=== PATIENT | female | born 1945 | race Asian ===

== ENCOUNTER → 2023-04-25 11:07 | Outpatient (REF) | payer OTHER, SELFPAY | LOC: HWRAD 11:07 | PROVIDERS: ATTENDING PHYSICIAN Nurse Practitioner Family | DX: R10.2 Pelvic and perineal pain (principal) | CPT/HCPCS: 76830; 76856 ==

== ENCOUNTER 2023-07-03 16:54 | Observation (INO) | payer OTHER, SELFPAY ==
[2023-07-03] VITALS (16 sets, daily range): BP systolic 93–151; BP diastolic 49–94; PULSE 72–82; BMI 28.1
--- NOTE | 2023-07-03 11:15 | ED.GENMED ---
History of Present Illness
General
Chief Complaint: Dizziness
Source: patient and family
Exam Limitations: none
Time Seen by Provider: 07/03/23 11:11
Nursing documentation reviewed up to this point in time: agreed with
Travel History
Have you had any contact with someone who has COVID-19?: No
Do you have any symptoms of coronavirus? Fever > 100 degrees, chills, cough, shortness of breath, sore throat, loss of taste or smell, muscle aches, or headache?: No
History of Present Illness
History of Present Illness:
77 yr old female presents to the ED with family. Family, daughter at bedside assisting with translation reports patient woke up fine this morning but then around 9 AM while walking she suddenly felt very dizzy and describes room spinning. She
actually fell over to the right. She describes this dizziness as room spinning feels better at rest. She denies any associated headache trauma. Denies any recent illness fever chills. Denies any visual deficit. Daughter does report the
patient's cholesterol was recently found to be above 500 and she just started treatment.
No prior history of stroke.
Past History
Past History
ED Past Medical History: Cancer, Hypercholesterolemia and NIDDM
ED Past Surgical History: Gynecological
Social History
Tobacco: Non-smoker
Living: with family
Review of Systems
Review of Systems
Allergies reviewed?: Yes
Other source history: family
All Other Systems: ROS reviewed and negative except as documented in HPI and ROS
Constitutional: Reports no symptoms; Denies fever, fatigue or chills
EENT: Reports no symptoms
Respiratory: Reports no symptoms
ABD/GI: Reports no symptoms
: Reports no symptoms
Musculoskeletal: Reports no symptoms
Skin: Reports no symptoms
Neurological: Reports dizzy (room spinning )
Psychiatric: Reports no symptoms
Phy Exam
General Physical Exam
General Presentation: no apparent distress
General age: appears stated age
General Skin: warm and dry
General Habitus: normal
General Mental: alert
General Hydration: appears well hydrated
Eye Exam
Eye Exam: PERRL, EOMI and other (no nystagmus b/ l )
Eye Exam General: PERRL: bilateral and EOM intact: bilateral
Pupil Exam: Bilateral: round and reactive
Cardiovascular Exam
Cardiovascular Exam: regular rate/rhythm
Pulmonary Exam
Pulmonary Exam: lungs clear and no respiratory distress
Neurological Exam
Neurological Exam: alert and oriented x3
Musculoskeletal Exam
Musculoskeletal Exam: full ROM
Skin Exam
Skin Exam: normal color and warm/dry
Psychiatric Exam
Psychiatric Exam: normal mood/affect
Course
Orders/Labs/Results
Orders:
Orders
07/03/23 10:30
Electrocardiogram (*1) Urgent
Reason for Study: Fatigue / Weakness
EKG- Treatment ONCE
07/03/23 11:16
IV Insert/Care/Rem.- Treatment PRN
0.9% Sodium Chloride 1000 ml [Nss] 1,000 ml IV BOLUS
07/03/23 11:17
CT Head W/o Iv Contrast Urgent
Comment:
Reason For Exam: dizzy
07/03/23 11:22
Basic Metabolic Panel Urgent
Complete Blood Count/With Diff Urgent
07/03/23 11:25
Physical Therapy Consult [Pt Eval And Treat] Urgent
Treatment: vertigo
Activity Level: As Tolerated
07/03/23 13:30
Meclizine [Antivert] 25 mg PO NOW STA
07/03/23 16:16
Orthostatic Vital Signs As Directed
Orthostatic VS Frequency: Now
07/03/23 16:23
Potassium Urgent
Abnormal Lab Results
07/03/23
11:22
WBC 3.6 L 10^3/uL
(4.8-10.8)
MCH 32.2 H pg
(27.0-31.0)
Monocytes % 11.7 H %
(1.7-9.3)
Chloride 108 H mmol/L
(98-107)
Glucose 189 H mg/dl
(70-99)
07/03/23 11:22
Vital Signs
Initial and Last Documented VS:
Initial Vital Signs
Temp Pulse Resp BP Pulse Ox
99.1 F 86 18 136/77 96
07/03/23 10:27 07/03/23 10:27 07/03/23 10:27 07/03/23 10:27 07/03/23 10:27
Last Documented Vital Signs
Temp Pulse Resp BP Pulse Ox
99.1 F 72 13 136/81 96
07/03/23 10:27 07/03/23 15:34 07/03/23 15:34 07/03/23 15:39 07/03/23 15:34
Software Engineer Web Applications consulted with Physician
Software Engineer Web Applications consulted with physician?: Yes
Name of Physician Consulted: Aquiles
MDM/Problems Addressed
Differential Diagnosis Includes:
Not limited to vertigo, CVA
MDM/Problems Addressed:
Patient is a 77-year-old female presents to the for evaluation of vertigo. Patient started with vertigo this morning describing room spinning sensation. Patient denies any trauma is not on blood thinners. Patient presented very dizzy seemed worse
with position change. CAT scan negative no nystagmus on exam. Patient was seen by physical therapy given the reevaluated still with difficulty walking. Given patient's age and very documented history as per daughter of high cholesterol and only
recently started on medication will admit for further evaluation possible neurology stroke workup
Chronic conditions affecting care:
high cholesterol
*Radiology
Radiology exam reviewed: radiology read reviewed
*Pulse Oximetry
Patient hypoxic: no
*EKG
Interpreted by ED Provider?: Yes
Comparison EKG: no comparison EKG present
Heart Rate: 84
Rate: normal
Rhythm: sinus
Ischemia: no ischemia
*Critical Care Note
Total Time (30-74mins, 75-104mins- exclusive of procedures): Not Applicable
ED Attending Note
-
Portions of this chart may have been created with voice recognition software.� Occasional wrong word or��sound alike� substitutions may have occurred due to the inherent limitations of voice recognition software.
Discharge Plan
Departure
Patient Disposition: Admit
Date of Disposition: 07/03/23
Time of Disposition: 16:18
Admit to: Telemetry
Admit to doctor: hospitalist
Presentation/result/management discussed w/ accepting MD/DO: Hospitalist
Patient with high blood pressure during this ER visit?: Yes
Condition: Fair
Covid-19: Not Applicable
Discharge Problem:
Vertigo
Prescriptions:
No Action
metformin 500 MG tablet
500 mg PO BID
simvastatin 20 mg tablet
20 mg PO HS
raloxifene 60 mg tablet
60 mg PO DAILY
Edmond 3 Fish Oil 684-1,200 mg Capsule,Delayed Release(Dr/Ec)
1 cap PO DAILY
cholecalciferol (vitamin D3) 50 mcg (2,000 unit) tablet
50 mcg PO DAILY
fenofibrate 54 mg tablet
54 mg PO DAILY
Referrals:
Anupama Biggs CRNP [Family Provider] -
Interventions
Interventions:
*Risk Screen - Suicide Last Done: 07/03/23 11:17
*General Assessment Last Done: 07/03/23 11:17
*Neglect/Abuse Screening Last Done: 07/03/23 11:17
ED- Neurological Assessment Last Done: 07/03/23 11:17
ED Swallowing Screen Last Done: 07/03/23 11:17
Discharge Date and Time
Print Language: NAMIBIAN
[2023-07-03] MEDS: NSS 1000 IV (11:20)
[2023-07-03 11:33] LABS: % Basophils 0.8 % (0-2); % Eosinophils 1.7 % (0-6); % Immature Granulocytes 0.3 % (0-0.5); % Lymphocytes 35.2 % (20.5-51.1); % Monocytes 11.7 % (1.7-9.3); % Neutrophils 50.3 % (42.2-75.2); Absolute Eosinophils 0.1 10^3/uL (0-0.7); Absolute Lymphocytes 1.3 10^3/uL (1.2-3.4); Absolute Monocytes 0.4 10^3/uL (0.1-0.6); Absolute Neutrophils 1.8 10^3/uL (1.4-6.5); Hematocrit 41.7 % (37.0-47.0); Hemoglobin 14.3 g/dL (12.0-16.0); Mean Corp Hgb Conc. 34.3 g/dL (33.0-37.0); Mean Corpuscular Hgb 32.2 pg (27.0-31.0); Mean Corpuscular Volume 93.9 fL (81.0-99.0); Mean Platelet Volume 9.9 fL (7.4-10.4); Nucleated Red Blood Cells % 0 %; Platelet Count 185 10^3/uL (130-400); Red Blood Cell Count 4.44 10^6/uL (4.20-5.40); Red Cell Dist. Width 12.5 % (11.5-14.5); White Blood Cell Count 3.6 10^3/uL (4.8-10.8)
[2023-07-03 12:01] LABS: Blood Urea Nitrogen 17 mg/dl (7-17); Calcium 9.5 mg/dl (8.4-10.2); Carbon Dioxide 25 mmol/L (22-30); Chloride 108 mmol/L (98-107); Estimated Creatinine Clearance 64 ml/min; Glucose 189 mg/dl (70-99); Sodium 138 mmol/L (135-145); eGFR > 60.00
[2023-07-03] MEDS: ANTIVERT 25 MG PO (13:37)
--- NOTE | 2023-07-03 16:24 | W.PN.UPDATE ---
Update Note
Progress Note Update
I saw and examined the patient.
The [employer] LABORER/DESIGNER or PA's note was reviewed and I agree with the note.
Comment: 77-year-old female who presents with chief complaint of dizziness that was sudden onset this morning. Her dizziness is improved at rest but she still has dizziness when she moves her head.
136/81, 72, 13, 99.1 �F, 96% RA
NAD, awake and alert
EOMI, no nystagmus, no scleral icterus
RRR, normal S1/S2
CTAB
CN2-12 intact, non-focal
ECG (read by me): NSR @ 84, nl axis, QTc 475ms, no acute ST/TW changes
CT brain: There are no acute intracranial abnormalities. There is mild diffuse cortical atrophy with mild nonspecific white matter changes.
WBC 3.6
Cr 0.6
Dizziness:
-More than likely the patient's dizziness is peripheral in origin but there is a possibility that she has had a posterior stroke.
-check MRI/A head/neck, echo
-permissive HTN
-c/s neuro
-tele
-ASA/Plavix/statin
--- NOTE | 2023-07-03 16:28 | HPS.HSE ---
Addendum entered and electronically signed by ALEIDA Leigh 07/03/23 23:12:
Correction to cholesterol medication
Per daughter Ana Rosa patient is on simvastatin 20 mg at bedtime not atorvastatin 40 mg at bedtime, she is also on fenofibrate
-Will continue atorvastatin equivalent to simvastatin while inpatient only
Original Note:
Family Physician
-
Family Physician: ALEIDA Vogel
Chief Complaint
-
Dizziness, room spinning
History of Present Illness
77-year-old female with daughter Ana Rosa at bedside translating due to only speaking Mandarin. She states patient woke up this morning find that around 9 AM developed dizziness with the room spinning then went and had a bowel movement and felt
worse. She was walking down the bolanos drifting to her right side into the wall.. She reports that she did fall to the right side. When she moves her head left and right she has sensation of the room spinning. She is status post COVID infection
May 2023 6 weeks ago per daughter. She denies fever, chills, URI, blurred vision, headache, chest pain, palpitations, shortness breath, cough, abdominal pain, nausea, vomiting, diarrhea, urinary symptoms. She was recently placed on simvastatin
20 mg daily as cholesterol level was above 500. She has past medical history of HLD, DM2, right breast CA with mastectomy.
Medical History
Past Medical History
Past Medical History: Reports Other
Additional Past Medical History:
COVID-19 infection May 2023
HLD
DM2
right breast CA with mastectomy 50 years ago
Past Surgical History: Reports Other
Additional Past Surgical History:
right breast CA with mastectomy 50 years ago
Social History
Tobacco: Non-smoker
Alcohol: None
Drug: None
Personal: Single
Living: With Family
Employment: Retired
Family History
Family History: Other (Patient and daughter Ana Rosa at bedside unsure states parents old age)
Allergies / Home Medications
Allergies reflects when Allergies were last updated in [facility].
Home Medications with original date entered in [facility]
Allergy/Medication List:
Allergies
Allergy/AdvReac Type Severity Reaction Status Date / Time
No Known Allergies Allergy Verified 07/03/23 10:27
Home Medications
metformin 500 mg tablet 500 mg PO BID 08/28/16
cholecalciferol (vitamin D3) 50 mcg (2,000 unit) tablet 50 mcg PO DAILY 07/03/23
fenofibrate 54 mg tablet 54 mg PO DAILY 07/03/23
omega-3 fatty acids-fish oil 684 mg-1,200 mg capsule,delayed release 1 cap PO DAILY 07/03/23
raloxifene 60 mg tablet 60 mg PO DAILY 07/03/23
simvastatin 20 mg tablet 20 mg PO HS 07/03/23
vibegron 75 mg tablet (Gemtesa) 75 mg PO HS 07/03/23
Review of Systems
-
History Source: Patient and Family (Daughter Ana Rosa at bedside translating as patient speaks only Mandarin)
A 12 point ROS was completed and negative except as noted: Yes
Constitutional: Denies Fever, Fatigue or Chills
EENT: Denies Sore Throat or Runny Nose
Respiratory: Denies Cough or Trouble Breathing
Cardiac: Denies Chest Pain, Diaphoresis, Palpitations or Syncope
Abdomen/GI: Denies Abdominal Pain, Nausea, Vomiting, Diarrhea or Constipated
: Denies Dysuria, Frequency, Flank Pain, Incontinence, Difficulty Voiding or Urgency
Musculoskeletal: Denies Joint Pain or Edema
Skin: Denies Itching or Rash
Neurological: Reports Dizzy; Denies Headache, Weakness or Numbness
Endocrine: Reports No Symptoms
Hematologic/Lymphatic: Reports No Symptoms
Psych: Reports Calm
Physical Exam
Vital Signs
Vital Signs
Temp Pulse Resp BP Pulse Ox
99.1 F 72 13 136/81 96
07/03/23 10:27 07/03/23 15:34 07/03/23 15:34 07/03/23 15:39 07/03/23 15:34
Physical Exam
General: Comfortable and Conversant; No Pain, Fever or Chills
HEENT: NormoCephalic, Anicteric, Moist mucous membranes, PERRLA, Canon Conjunctivae, No Ptosis and Other (Patient reports dizziness with turning head left and right)
Respiratory: Clear; No Wheezes, Rales or Rhonchi
Cardiac: S1/S2 and Regular Rhythm; No Murmur, Rub, Gallop or Peripheral Edema
Breast: Deferred by me
GI: Soft, Non Tender, Non Distended, Normal Bowel Sounds and No Hepatosplenomegaly
Rectal: Deferred by Provider
Genito-urinary: Deferred by me
Musculoskeletal: No Clubbing, No Cyanosis and No Edema
Skin: Warm and Dry; No Rash or Jaundice
Neuro: AO x 3 (Per daughter she is answering appropriately in her deering language of Mandarin), No Motor Deficits, Nonfocal/grossly intact, Cranial Nerves Intact and No Sensory Deficits; No Slurred Speech, Facial Droop or Tremors
Psych: Calm
Laboratory Results
-
07/03/23 11:22
Laboratory Results
Total Bilirubin Cancelled 07/03/23 11:22
AST Cancelled 07/03/23 11:22
ALT Cancelled 07/03/23 11:22
Alkaline Phosphatase Cancelled 07/03/23 11:22
Data Reviewed
-
CT Scan: Report Reviewed by me
Lab Data: Labs Reviewed by me
Impression/Plan
-
Impression/plan:
Observation telemetry
#Acute dizziness concern for CVA/TIA/vertigo
#Hx covid 19 infection 6 weeks ago
BP 136/81
-Orthostatic vitals
-Consult Neurology-Case discussed with Dr. Acuna
-MRI/MRI brain/neck
-Check lipid profile, HgbA1c
-Continue atorvastatin 40 mg at bedtime
-Aspirin 325 mg now and 81 mg daily
-Plavix 300 mg now and 75 mg daily x 21 days
-Allow permissive hypertension 220/120
-PT/OT/case management eval
CT head: No acute intracranial abnormalities. Mild diffuse cortical atrophy with mild nonspecific white matter changes
#HLD
-Reported outpatient cholesterol greater than 500
-Was just started on simvastatin 20 mg daily per daughter, fenofibrate 54 mg
#HX Covid 19 infection May 2023
#DM2
Accu-Cheks SSI, check HgbA1c
-Continue metformin 500 mg twice daily
#History of right-sided breast cancer with mastectomy 50 years ago per daughter
-Continue raloxifene 60 mg daily
#Overactive bladder
-Just started Gemtesa yesterday
DVT prophylaxis
SCDs
DNR per her daughter Ana Rosa per discussion with patient
[2023-07-03] MEDS: PLAVIX 300 MG PO (16:59)
[2023-07-03] MEDS: ASPIRIN 325 MG PO (16:59)
[2023-07-03 17:16] LABS: Potassium 3.8 mmol/L (3.5-5.1)
[2023-07-03] MEDS: GLUCOPHAGE 500 MG PO (19:06)
[2023-07-03] MEDS: TYLENOL 650 MG PO (20:01)
[2023-07-03] MEDS: DETROL LA 4 MG PO (22:41)
[2023-07-03] MEDS: LIPITOR PO ×2 (22:41→23:00)
[2023-07-04] VITALS (18 sets, daily range): BP systolic 86–155; BP diastolic 48–102; PULSE 81–99
[2023-07-04 06:56] LABS: Blood Urea Nitrogen 20 mg/dl (7-17); Calcium 9.1 mg/dl (8.4-10.2); Carbon Dioxide 21 mmol/L (22-30); Chloride 109 mmol/L (98-107); Estimated Creatinine Clearance 55 ml/min; Glucose 108 mg/dl (70-99); HDL Cholesterol 48 mg/dl; LDL Cholesterol, Calculated 50 mg/dl; Potassium 3.8 mmol/L (3.5-5.1); Sodium 140 mmol/L (135-145); Total Cholesterol 136 mg/dl (50-199); Triglyceride 194 mg/dl (10-149); Very Low Density Lipoprotein 38 mg/dl (0-30); eGFR > 60.00
[2023-07-04 07:54] LABS: % Basophils 0.8 % (0-2); % Eosinophils 1.8 % (0-6); % Lymphocytes 35.7 % (20.5-51.1); % Monocytes 9.6 % (1.7-9.3); % Neutrophils 52.1 % (42.2-75.2); Absolute Eosinophils 0.1 10^3/uL (0-0.7); Absolute Lymphocytes 1.4 10^3/uL (1.2-3.4); Absolute Monocytes 0.4 10^3/uL (0.1-0.6); Hematocrit 40.4 % (37.0-47.0); Mean Corp Hgb Conc. 34.7 g/dL (33.0-37.0); Mean Corpuscular Hgb 32.6 pg (27.0-31.0); Mean Platelet Volume 9.6 fL (7.4-10.4); Nucleated Red Blood Cells % 0 %; Platelet Count 168 10^3/uL (130-400); Red Cell Dist. Width 12.5 % (11.5-14.5); White Blood Cell Count 3.8 10^3/uL (4.8-10.8)
--- NOTE | 2023-07-04 08:12 | CON.NEURO4 ---
Addendum entered and electronically signed by Orlando Acuna MD 07/04/23 14:09:
I saw and evaluated the patient I reviewed the note by Grazyna Perry agree the findings the following comments:
77-year-old woman with history of hypertension, diabetes and breast cancer presented to hospital with episode of significant vertigo along with walking to the right which was unusual for her. Patient and daughter detail that she has had
longstanding episodes of vertigo that are usually not severe.
Patient denies any paresthesia pallor weakness or pain in the right or left arms or any provocation of the symptoms with arm exercises. She does think that turning her head can provoke the vertigo symptoms.
Neurologic examination is unremarkable
Vascular examination of the arms unremarkable with no pallor normal radial pulses good capillary refill normal appearance of the arm color
Denton-Hallpike maneuver for me was negative did not elicit any characteristic nystagmus
MRI of the brain and MRA of the head and neck reviewed no acute stroke no chronic stroke no significant vertebral or basilar artery stenosis or occlusion.
Left-sided subclavian stenosis is noted.
Assessment: Most likely this is still benign paroxysmal positional vertigo. Very unlikely that this is a subclavian steal syndrome but we will keep this in the back of our minds if her symptoms do not improve.
Recommendations
-Check carotid ultrasound to assess for any flow reversal in the vertebral artery
-Manuel maneuver for BPPV treatment
-Would continue on aspirin 81 mg daily for the subclavian stenosis
-Neurology follow-up 4 to 6 weeks if no improvement in the dizziness
-No barriers to discharge
Original Note:
Documented by User: Grazyna Moore NP 07/04/23 12:31
Consultation - Neurology 4
-
CONSULTING PHYSICIAN: Khloe Acuna MD
REFERRING PHYSICIAN: Hospitalists/
DICTATED BY: ALEIDA Gonsalez
DATE/TIME OF REQUEST: 07/03/23
DATE/TIME OF CONSULTATION: 07/04/23
Reason for Consultation: Vertigo
History of Present Illness:
This is a 77-year-old right-handed female who has presented to the hospital on 07/03/23 with report of vertigo. Patient is Mandarin speaking and her family at bedside is translating for this interview. Patient reports that yesterday morning
(07/03/23) she was in her usual state when suddenly while walking at 0900 she developed a spinning sensation and sudden urge to defecate. While walking to the bathroom she was drifting to the right and bumping into the wall. She had a normal bowel
movement on the toilet, and then her dizziness worsened. The dizziness is constant but did improve some after several hours. She is still mildly dizzy laying still and her symptoms worse when she looks left or ambulates. She had a headache yesterday
which resolved with Tylenol. She denies any vision changes, ear fullness/hearing changes/tinnitus, speech/swallow difficulty, numbness, weakness, vomiting, chest pain, palpitations, and shortness of breath. She had covid about 6 weeks ago associated
with fevers, cough, and chills. She has a history of vertigo in her younger years that was diagnosed as BPPV, those episodes were short lasting, only a few minutes, and did not feel as severe as this. She denies any history of TIA or stroke and is
not taking any blood-thinning medications.
Past Medical History: NIDDM, HLD, right breast cancer s/p mastectomy, covid May 2023
Surgical History: Right breast mastectomy
Family History: Reviewed and noncontributory.
Social History: Denies tobacco, alcohol, and illicit drug use.
Allergies: No known allergies.
Home Medications: See below.
Review of Symptoms:
Patient denies any fever, headache, chest pain, shortness of breath, GI or symptoms.
�Per the HPI.�All systems are reviewed negative except above.
Physical Exam:
The patient is afebrile, abdomen is nondistended, breathing is unlabored, skin is warm and dry, no edema.
NIH Stroke Scale:
I performed the NIH stroke scale on the patient on 07/04/23 at 0840. The patient scored 0 points on the NIH stroke scale assessment, which were assigned as follows: See below.
Neurologic Examination:
The patient is awake, alert and oriented x 3. She is able to follow commands and answer questions appropriately. There is no aphasia or dysarthria. On cranial nerve assessment, pupils are 3 mm bilateral, round and reactive to light and
accommodation. Visual granados are full. Extraocular movements are intact. Reports dizziness with left gaze. No nystagmus. Facial sensations are intact and bilaterally symmetrical, there is no facial asymmetry. Hearing is intact bilaterally to finger
rub. Tongue palate and uvula are midline. Sternocleidomastoid strengths are full bilaterally. Motor strengths are 5/5 bilateral upper and lower extremities on medical research [place] scale. There is no drift or involuntary movement noted. Deep
tendon reflexes are 2+ bilateral upper and lower extremities and Babinski is absent bilaterally. Sensations of temperature and vibration are mildly reduced in distal bilateral lower extremities. There was no extinction noted on double simultaneous
stimulation. Coordination is intact by finger to nose bilaterally.
Lab Results: See below.
Neuro Imaging:
1. CT Head 07/03/23: There are no acute intracranial abnormalities. There is mild diffuse cortical atrophy with mild nonspecific white matter changes as described above.
Differentials for the patient's presentation include:
1. Peripheral vertigo. Long duration less supportive of BPPV. Vestibular neuritis possible, covid infection possibly a trigger for this. No hearing changes to suggest Meneire disease.
2. MRI brain negative for stroke.
3. MRA neck with incidental/unrelated finding of proximal left subclavian artery 70% stenosis.
Patient has the following risk factors for their symptoms: hx vertigo, recent covid
Recommendations:
-Discontinue aspirin/clopidogrel.
-Meclizine 25mg PO q8hrs PRN dizziness. Encourage hydration.
-Continue physical therapy.
-Neurological checks per unit guidelines.
-Goal normotension.
-DVT prophylaxis.
-Avoid driving until symptoms resolve entirely.
Discussed patient care with: Dr. Acuna, the patient, patient's family
Vital Signs and Labs
-
Vital Signs and Labs:
Vital Signs
Temp Pulse Resp BP Pulse Ox
98.4 F 84 14 123/82 95
07/04/23 07:15 07/04/23 07:30 07/04/23 07:30 07/04/23 07:00 07/04/23 08:37
Lab Results
07/04/23 07:39
07/04/23 05:51
Sodium 140 mmol/L (135-145) 07/04/23 05:51
Potassium 3.8 mmol/L (3.5-5.1) 07/04/23 05:51
BUN 20 mg/dl (7-17) H 07/04/23 05:51
Glucose 108 mg/dl (70-99) H 07/04/23 05:51
Calcium 9.1 mg/dl (8.4-10.2) 07/04/23 05:51
LDL Cholesterol, Calc 50 mg/dl 07/04/23 05:51
Medications
-
Active Medications
Generic Name Dose Route Start Last Admin
Trade Name Freq PRN Reason Stop Dose Admin
Acetaminophen 650 mg 07/03/23 19:57 07/03/23 20:01
Acetaminophen 325 Mg Tablet PO 07/31/23 19:56 650 mg
Q6HPRN PRN Administration
mild pain/ fever>100.5F
Aspirin 81 mg 07/04/23 08:00 07/04/23 08:14
Aspirin 81 Mg (Enteric Coated) Tablet PO 08/01/23 07:59 81 mg
DAILY MILAGROS Administration
Atorvastatin Calcium 10 mg 07/03/23 22:00 07/03/23 23:00
Atorvastatin (Lipitor) 10 Mg Tablet PO 07/31/23 21:59 Not Given
HS MILAGROS
Cholecalciferol 50 mcg 07/04/23 08:00 07/04/23 08:14
Cholecalciferol (Vitamin D3) 50 Mcg Tablet (2,000 Units) PO 08/01/23 07:59 50 mcg
DAILY MILAGROS Administration
Clopidogrel Bisulfate 75 mg 07/04/23 08:00 07/04/23 08:14
Clopidogrel 75 Mg Tablet PO 08/01/23 07:59 75 mg
DAILY MILAGROS Administration
Dextrose 12.5 grams 07/03/23 17:23
Dextrose 50% (0.5 Grams/Ml) 50 Ml Syringe IV 07/31/23 17:22
[id number] PRN
hypoglycemia
Protocol
Fenofibrate 48 mg 07/04/23 08:00 07/04/23 08:14
Fenofibrate 48 Mg Tablet PO 08/01/23 07:59 48 mg
DAILY MILAGROS Administration
Glucagon 1 mg 07/03/23 17:23
Glucagon 1 Mg Vial IM 07/31/23 17:22
PRN PRN
hypoglycemia
Protocol
Insulin Aspart 0 units 07/04/23 07:30
Insulin Aspart Low Resistance 300 Units/3 Ml Pen.Injctr SC 08/01/23 07:29
AC MILAGROS
Protocol
Meclizine HCl 25 mg 07/03/23 17:23
Meclizine 25 Mg Tablet PO 07/31/23 17:22
Q8HPRN PRN
dizziness
Metformin HCl 500 mg 07/03/23 18:00 07/04/23 08:13
Metformin 500 Mg Regular Release Tablet PO 07/31/23 17:59 500 mg
BID AT 0800,1700 MILAGROS Administration
Raloxifene HCl 60 mg 07/04/23 08:00 07/04/23 08:15
Raloxifene 60 Mg Tablet PO 08/01/23 07:59 60 mg
DAILY MILAGROS Administration
Sodium Chloride 0 flush 07/03/23 18:00
Sodium Chloride 0.9% (Flush) Syringe IV 07/31/23 17:59
PER PROTOCOL MILAGROS
Tolterodine Tartrate 4 mg 07/03/23 22:00 07/03/23 22:41
Tolterodine 4 Mg Extended Release Capsule PO 07/31/23 21:59 4 mg
HS MILAGROS Administration
Home Medications
�Medication �Instructions �Recorded
metformin 500 mg tablet 500 mg PO BID 08/28/16
cholecalciferol (vitamin D3) 50 50 mcg PO DAILY 07/03/23
mcg (2,000 unit) tablet
fenofibrate 54 mg tablet 54 mg PO DAILY 07/03/23
omega-3 fatty acids-fish oil 684 1 cap PO DAILY 07/03/23
mg-1,200 mg capsule,delayed release
raloxifene 60 mg tablet 60 mg PO DAILY 07/03/23
simvastatin 20 mg tablet 20 mg PO HS 07/03/23
vibegron 75 mg tablet (Gemtesa) 75 mg PO HS 07/03/23
NIH Stroke Score
Subsequent NIH Scale
Date of Subsequent NIH Scale: 07/04/23
Time of Subsequent NIH Scale: 08:40
NIH Stroke Score
Level of Consciousness: 0 - Alert
LOC Questions: 0-Answers both correctly
LOC Commands: 0-Performs both correctly
Best Horizontal Gaze: 0-Normal
Visual Granados: 0=Normal, no visual loss
Facial Palsy: 0=Normal, symmetrical
Motor - Right Arm: 0=No drift 10 seconds
Motor - Left Arm: 0=No drift 10 seconds
Motor - Right Le-No drift 5 seconds
Motor - Left Le-No drift 5 seconds
Limb Ataxia: 0-Absent
Sensation: 0-Normal
Best Language: 0-No aphasia
Dysarthria: 0-Normal
Extinction and Inattention: 0-No abnormality
Total Score:: 0

Documented by User: Orlando Acuna MD 07/04/23 14:09
NIH Stroke Score
NIH Stroke Score
Total Score:: 0
[2023-07-04] MEDS: GLUCOPHAGE 500 MG PO ×2 (08:13→17:25)
[2023-07-04] MEDS: VITAMIN D3 (cholecalciferol) 50 MCG PO (08:14)
[2023-07-04] MEDS: TRICOR 48 MG PO (08:14)
[2023-07-04] MEDS: PLAVIX 75 MG PO (08:14)
[2023-07-04] MEDS: ASPIR LOW (ENTERIC COATED) 81 MG PO (08:14)
[2023-07-04] MEDS: EVISTA 60 MG PO (08:15)
--- NOTE | 2023-07-04 09:00 | W.PN.HOSP.TC ---
Today's Communication/Plan
-
see bold
Assessment / Plan
Assessment / Plan
Gen: NAD, Awake and alert
Eyes: EOMI, PERRLA, no scleral icterus.
Neck: supple.
CV: RRR, +S1/S2, no m/r/g.
Resp: CTAB, no rales, wheezes, or rhonchi.
Abd: +BS, soft, NT, ND
Skin: No rashes.
Neuro: CN 2-12 intact, non-focal.
Psych: Normal mood and affect.
ECG (read by me): NSR @ 84, nl axis, QTc 475ms, no acute ST/TW changes
CT brain: There are no acute intracranial abnormalities. There is mild diffuse cortical atrophy with mild nonspecific white matter changes.
MRI brain: No acute intracranial abnormality noted. No acute infarct. Mild chronic microvascular white matter ischemic disease.
MRA brain: No hemodynamically significant stenosis, branch occlusion, or aneurysm.
MRA neck: No significant carotid plaque formation or hemodynamically significant stenosis, bilaterally. Incidental 70% stenosis of the proximal left subclavian artery, just proximal to the left vertebral artery origin. There is also high-grade
stenosis versus occlusion of the mid to distal left subclavian artery.
Dizziness:
-no CVA on imaging as above
-peripheral in origin
-appreciate neuro
-Meclizine PRN
-ASA alone as per neuro
-echo and carotid U/S pending
Other problems:
Hyperlipidemia: cont statin
DM2: cont Metformin/SSI/accuchecks
h/o R-sided breast cancer with mastectomy 50 years ago: Continue raloxifene
Overactive bladder: started Gemtesa 1 day [employer]
DNR/SCDs
Anticipated Discharge: Within 24 hours
Subjective/Interval History
-
Date of Service: July 04, 2023
Dizziness has improved.
Objective Data
-
Labs:
Laboratory Results
07/04/23 07/04/23
05:51 07:39
WBC Cancelled 3.8 L
Hgb Cancelled 14.0
Hct Cancelled 40.4
Plt Count Cancelled 168
Sodium 140
Potassium 3.8
Chloride 109 H
Carbon Dioxide 21 L
BUN 20 H
Creatinine 0.7
Glucose 108 H
Calcium 9.1
Vital Signs:
Vital Signs
Temp Pulse Resp BP Pulse Ox
98.4 F 84 14 123/82 95
07/04/23 07:15 07/04/23 07:30 07/04/23 07:30 07/04/23 07:00 07/04/23 08:37
[2023-07-04 09:04] LABS: Glucose - Point of Care 102 mg/dl (70-99)
[2023-07-04] MEDS: NOVOLOG FLEXPEN-LOW RESISTANCE SC ×2 (09:11→12:14)
[2023-07-04 09:30] LABS: Glycohemoglobin (HgbA1c) 6.6 % (4.0-5.6)
--- NOTE | 2023-07-04 09:38 | EDRN ---
see prior check at 0800
[2023-07-04 12:14] LABS: Glucose - Point of Care 110 mg/dl (70-99)
[2023-07-04 17:17] LABS: Glucose - Point of Care 185 mg/dl (70-99)
[2023-07-04] MEDS: NOVOLOG FLEXPEN-LOW RESISTANCE 1 UNITS SC (17:24)
[2023-07-04 21:57] LABS: Glucose - Point of Care 104 mg/dl (70-99)
[2023-07-04] MEDS: DETROL LA 4 MG PO (23:15)
[2023-07-04] MEDS: DETROL LA PO (23:15)
[2023-07-04] MEDS: LIPITOR 10 MG PO (23:16)
[2023-07-05 03:50] VITALS: BP 111/77
[2023-07-05 07:00] VITALS: BP 99/68
--- NOTE | 2023-07-05 08:07 | W.PN.HOSP.TC ---
Today's Communication/Plan
-
d/c
Assessment / Plan
Assessment / Plan
Gen: remains NAD, Awake and alert
Eyes: EOMI, PERRLA, no scleral icterus.
Neck: supple.
CV: remains RRR, +S1/S2, no m/r/g.
Resp: remains CTAB, no rales, wheezes, or rhonchi.
Skin: No rashes.
Neuro: CN 2-12 intact, non-focal.
Psych: Normal mood and affect.
ECG (read by me): NSR @ 84, nl axis, QTc 475ms, no acute ST/TW changes
CT brain: There are no acute intracranial abnormalities. There is mild diffuse cortical atrophy with mild nonspecific white matter changes.
MRI brain: No acute intracranial abnormality noted. No acute infarct. Mild chronic microvascular white matter ischemic disease.
MRA brain: No hemodynamically significant stenosis, branch occlusion, or aneurysm.
MRA neck: No significant carotid plaque formation or hemodynamically significant stenosis, bilaterally. Incidental 70% stenosis of the proximal left subclavian artery, just proximal to the left vertebral artery origin. There is also high-grade
stenosis versus occlusion of the mid to distal left subclavian artery.
Carotid U/S: No significant carotid bulb plaque demonstrated on either side, and no evidence of hemodynamically significant carotid stenosis as per modified Society of Radiologists in Ultrasound consensus criteria (IAC carotid criteria white paper,
2020).
Echo: Normal left ventricular wall thickness. . Normal left ventricular chamber size.
Normal left ventricular systolic function. Left ventricular ejection fraction
is 64%, by Johnson's method. Diastolic function indeterminate.
Mitral annular calcification. Thickened mitral valve leaflets. Mitral valve
opens normally. Mild mitral regurgitation.
Tricuspid valve opens normally. Moderate tricuspid regurgitation. Estimated
pulmonary artery pressure of 35 mmHg, assuming a right atrial pressure of 3
mmHg.
There is no cardiac embolic source seen. However if clinical suspicion is high
would suggest BRAYDEN.
Since echocardiogram May 2018, there is no significant change.
Dizziness:
-all imaging above
-no CVA on imaging as above
-peripheral in origin
-appreciate neuro
-Meclizine PRN
-ASA alone as per neuro
L subclavian artery stenosis:
-outpt f/u with vascular
-discussed with Dr. Estrada. This does not need to delay discharge.
Other problems:
Hyperlipidemia: cont statin
DM2: cont Metformin/SSI/accuchecks
h/o R-sided breast cancer with mastectomy 50 years ago: Continue raloxifene
Overactive bladder: started Gemtesa 1 day [employer]
Pt's daughter updated at bedside.
DNR/SCDs
Total time spent on d/c = 31 min. This included today's physical exam, progress note, review of laboratory and diagnostic data, preparation of discharge documents and prescriptions, and discussions about the pt's hospital course and discharge plan
with the patient and other medical office representative involved in the patient's care.
Anticipated Discharge: Today
Subjective/Interval History
-
Date of Service: July 05, 2023
Dizziness has resolved.
Objective Data
-
Vital Signs:
Vital Signs
Temp Pulse Resp BP Pulse Ox
98 F 81 18 111/77 94
07/05/23 03:50 07/05/23 03:50 07/05/23 03:50 07/05/23 03:50 07/05/23 03:50
I&O
07/04/23 07/05/23 07/06/23
06:59 06:59 06:59
Intake Total 480 / 480
Balance 480 / 480
[2023-07-05 08:32] LABS: Glucose - Point of Care 100 mg/dl (70-99)
[2023-07-05] MEDS: ASPIR LOW (ENTERIC COATED) 81 MG PO (09:08)
[2023-07-05] MEDS: VITAMIN D3 (cholecalciferol) 50 MCG PO (09:08)
[2023-07-05] MEDS: GLUCOPHAGE 500 MG PO (09:08)
[2023-07-05] MEDS: EVISTA 60 MG PO (09:08)
[2023-07-05] MEDS: TRICOR 48 MG PO (09:08)
[2023-07-05] MEDS: NOVOLOG FLEXPEN-LOW RESISTANCE SC (09:08)
--- NOTE | 2023-07-05 15:10 | CM ---
Met with pt and her daughter at bedside - daughter translated
Pt lives in a in-law suite with her daughter and family
Independent with adl's, ambulation
DME - none
SNF/HH - denies past hx
Has ride at d/c
PCP - Dr Anupama Biggs
Pharm - [facility]
Plan - home no needs
--- NOTE | 2023-07-05 15:42 | W.DCSUMMARY ---
Discharge Summary
Discharge Data
Date of Admission: 07/03/23
Date of Discharge: 07/05/23
-
Pending Results: No
Hospital Course
Primary diagnoses:
Peripheral dizziness/vertigo
Left subclavian artery stenosis
Secondary diagnoses:
Hyperlipidemia
Type 2 diabetes mellitus
h/o Right-sided breast cancer with mastectomy 50 years ago
Overactive bladder
Consultants:
Neurology
Imaging:
CT brain: There are no acute intracranial abnormalities. There is mild diffuse cortical atrophy with mild nonspecific white matter changes.
MRI brain: No acute intracranial abnormality noted. No acute infarct. Mild chronic microvascular white matter ischemic disease.
MRA brain: No hemodynamically significant stenosis, branch occlusion, or aneurysm.
MRA neck: No significant carotid plaque formation or hemodynamically significant stenosis, bilaterally. Incidental 70% stenosis of the proximal left subclavian artery, just proximal to the left vertebral artery origin. There is also high-grade
stenosis versus occlusion of the mid to distal left subclavian artery.
Carotid U/S: No significant carotid bulb plaque demonstrated on either side, and no evidence of hemodynamically significant carotid stenosis as per modified Society of Radiologists in Ultrasound consensus criteria (IAC carotid criteria white paper,
2020).
Echo: Normal left ventricular wall thickness. . Normal left ventricular chamber size.
Normal left ventricular systolic function. Left ventricular ejection fraction
is 64%, by Johnson's method. Diastolic function indeterminate.
Mitral annular calcification. Thickened mitral valve leaflets. Mitral valve
opens normally. Mild mitral regurgitation.
Tricuspid valve opens normally. Moderate tricuspid regurgitation. Estimated
pulmonary artery pressure of 35 mmHg, assuming a right atrial pressure of 3
mmHg.
There is no cardiac embolic source seen. However if clinical suspicion is high
would suggest BRAYDEN.
Since echocardiogram May 2018, there is no significant change.
77-year-old female who presented with chief complaint of dizziness/vertigo as outlined in the H&P done on admission. Hospital course per problem list:
Dizziness: All imaging above. No CVA on imaging as above. The patient had normal sinus rhythm on telemetry. The patient's dizziness was likely peripheral in origin. Her dizziness resolved while hospitalized. Due to disease in the subclavian
artery neurology did recommend the patient stay on aspirin alone.
L subclavian artery stenosis: Incidental finding. The patient will need outpatient follow-up with vascular surgery.
Discharge Plan
-
Patient Disposition: Home (Routine Discharge)
Discharge Diagnosis/Procedures: Peripheral vertigo
Condition: Good
Diet: Diabetic, Carb Controlled
Activity: As tolerated
Driving Restrictions: Not until seen by your Dr
Referrals:
Anupama Biggs CRNP [Family Provider] - in less than 1 week
Santi Mora MD [Active] - in two to four weeks (L subclavian stenosis)
Prescriptions:
New
aspirin 81 mg Tablet,Delayed Release (Dr/Ec)
81 mg PO DAILY Qty: 0 0RF
Continued
metformin 500 MG tablet
500 mg PO BID
simvastatin 20 mg tablet
20 mg PO HS
raloxifene 60 mg tablet
60 mg PO DAILY
omega-3 fatty acids-fish oil 684-1,200 mg Capsule,Delayed Release(Dr/Ec)
1 cap PO DAILY
cholecalciferol (vitamin D3) 50 mcg (2,000 unit) tablet
50 mcg PO DAILY
fenofibrate 54 mg tablet
54 mg PO DAILY
Gemtesa 75 mg Tablet
75 mg PO HS
Discharge Orders:
Discharge Patient (As Directed); Ordered 07/05/23
Ordered By: Chuck Bowie
Discharge Date and Time
Discharge Date/Time: 07/05/23 10:33
Print Language: BENGALI
== END 2023-07-05 10:33 | disposition home or self-care (01) ==
LOC: 3 WEST ACU 16:54
PROVIDERS: Clinical Nurse Specialist Family Health; Nurse Practitioner; ADMITTING PHYSICIAN Internal Medicine; CONSULT PHYSICIAN Student in an Organized Health Care Education/Training Program; EMERGENCY PHYSICIAN Emergency Medicine; FAMILY PHYSICIAN Nurse Practitioner Family
DX: R42 Dizziness and giddiness (principal); E78.00 Pure hypercholesterolemia, unspecified; I10 Essential (primary) hypertension; N32.81 Overactive bladder; I08.1 Rheumatic disorders of both mitral and tricuspid valves; I70.298 Other atherosclerosis of native arteries of extremities, other extremity; E11.9 Type 2 diabetes mellitus without complications; R53.83 Other fatigue; R53.1 Weakness; R26.2 Difficulty in walking, not elsewhere classified; Z90.11 Acquired absence of right breast and nipple; Z85.3 Personal history of malignant neoplasm of breast; Z86.16 Personal history of COVID-19; Z79.84 Long term (current) use of oral hypoglycemic drugs; Z66 Do not resuscitate; Z79.02 Long term (current) use of antithrombotics/antiplatelets
CPT/HCPCS: 70450; 70544; 70548; 70551; 80048; 80061; 82962; 83036; 84132; 85025; 93005; 93306; 93880; 96360; 97112; 97166; 99285; A9585; G0378

== ENCOUNTER → 2023-07-16 08:04 | Outpatient (REF) | payer OTHER, SELFPAY | LOC: DHCBC/DCA 08:04 | PROVIDERS: ATTENDING PHYSICIAN Internal Medicine Cardiovascular Disease; FAMILY PHYSICIAN Nurse Practitioner Family | DX: R07.9 Chest pain, unspecified (principal) | CPT/HCPCS: 78452; 93017; A9500; J2785 ==

== ENCOUNTER → 2023-07-31 09:41 | Outpatient (REF) | payer OTHER, SELFPAY | LOC: HWRAD 09:41 | PROVIDERS: ATTENDING PHYSICIAN Urology; FAMILY PHYSICIAN Nurse Practitioner Family | DX: N32.81 Overactive bladder (principal); N39.3 Stress incontinence (female) (male); R10.2 Pelvic and perineal pain | CPT/HCPCS: 76770 ==

== ENCOUNTER → 2023-09-03 | Outpatient (REF) | payer OTHER, SELFPAY | LOC: DHSLP | PROVIDERS: ATTENDING PHYSICIAN Nurse Practitioner Family | DX: G47.33 Obstructive sleep apnea (adult) (pediatric) (principal); G47.61 Periodic limb movement disorder | CPT/HCPCS: 95810 ==

== ENCOUNTER → 2023-12-31 15:33 | Outpatient (REF) | payer OTHER, SELFPAY | LOC: RAD 15:33 | PROVIDERS: ATTENDING PHYSICIAN Nurse Practitioner Family | DX: M54.16 Radiculopathy, lumbar region (principal); M25.552 Pain in left hip | CPT/HCPCS: 72110; 73502 ==